=== PATIENT | female | born 1985 | race Two or more races ===

== ENCOUNTER → 2020-11-30 | Outpatient (REF) | payer MEDICARE, OTHER ==
[2020-11-30 15:59] LABS: AMORPHOUS SEDIMENT SMALL (NEGATIVE); APPEARANCE, URINE CLOUDY (CLEAR); BACTERIA, URINE AUTO 2+ (NEGATIVE); BILIRUBIN, URINE AUTO NEGATIVE (NEGATIVE); BLOOD, URINE BLOOD NEGATIVE (NEGATIVE); COLOR, URINE AMBER (YELLOW); GLUCOSE, URINE (UA) AUTO NEGATIVE (NEGATIVE); KETONE, URINE AUTO NEGATIVE (NEGATIVE); LEUKOCYTE ESTERASE, URINE AUTO NEGATIVE (NEGATIVE); MUCUS, URINE SMALL (NEGATIVE); NITRITE, URINE AUTO POSITIVE (NEGATIVE); PROTEIN, URINE AUTO NEGATIVE (NEGATIVE); RBC, URINE AUTO 1 /HPF (0-3); SPECIFIC GRAVITY URINE AUTO 1.023 (1.002-1.035); SQUAMOUS EPITHELIAL CELL UR AU 1 /HPF (0-6); WBC, URINE AUTO 6 /HPF (0-3)
[2020-11-30 16:36] LABS: ALBUMIN 4.3 GM/DL (3.2-5.2); ALT/SGPT 31 U/L (12-78); BILIRUBIN,TOTAL 0.6 MG/DL (0.2-1.0); BLOOD UREA NITROGEN 13 MG/DL (7-18); CALCIUM LEVEL 10.6 MG/DL (8.5-10.1); CARBON DIOXIDE LEVEL 27 MEQ/L (21-32); CHLORIDE LEVEL 107 MEQ/L (98-107); CREATININE FOR GFR 0.72 MG/DL (0.55-1.30); GLOMERULAR FILTRATION RATE > 60.0 (>60); GLUCOSE, FASTING 76 MG/DL (70-100); PHENYTOIN (DILANTIN) 8.5 UG/ML (10.0-20.0); POTASSIUM SERUM 4.3 MEQ/L (3.5-5.1); SODIUM LEVEL 137 MEQ/L (136-145); TOTAL PROTEIN 7.7 GM/DL (6.4-8.2)
[2020-11-30 16:41] LABS: HEPATITIS B SURFACE ANTIBODY POSITIVE (POSITIVE)
[2020-11-30 16:52] LABS: HEPATITIS B SURFACE ANTIGEN NEGATIVE (NEGATIVE)
[2020-11-30 17:20] LABS: HEPATITIS C VIRUS ABY INDEX 0.2 INDEX (<0.8)
[2020-11-30 17:45] LABS: CHLAMYDIA DNA AMPLIFICATION NEGATIVE (NEGATIVE); GC DNA AMPLIFICATION NEGATIVE (NEGATIVE)
[2020-12-04 12:07] LABS: % CD8 Pos Lymph 37.2 % (12.0-35.5); %CD4 Pos Lymphs 37.2 % (30.8-58.5); ABS Eosinophils 0.1 x10E3/uL (0.0-0.4); ABS Lymphs 1.6 x10E3/uL (0.7-3.1); ABS Monocytes 0.2 x10E3/uL (0.1-0.9); ABS Neutophils 0.9 x10E3/uL (1.4-7.0); Abs CD4 Helper 595 /uL (359-1519); Abs CD8 Suppres 595 /uL (109-897); Eosinophils 2 % (Not Estab.); HCT 35.6 % (34.0-46.6); HEPATITIS A IgG TOTAL Negative (Negative); HEPATITIS B CORE ANTIBODY IGG Negative (Negative); HGB 11.4 g/dL (11.1-15.9); HIV-1 RNA PCR QUANT 2 LC550285 <20 copies/mL (.); Immature Grans 0 % (Not Estab.); LEVETIRACETAM (KEPPRA) 53.7 ug/mL (10.0-40.0); Lymphocytes 58 % (Not Estab.); MCH 28.9 pg (26.6-33.0); MCV 90 fL (79-97); Monocytes 8 % (Not Estab.); Neutrophils 31 % (Not Estab.); Platelets 230 x10E3/uL (150-450); RBC 3.94 x10E6/uL (3.77-5.28); WBC 2.7 x10E3/uL (3.4-10.8)
== END ==
LOC: M SFHCPLAZ 11:59
PROVIDERS: ATTEND Internal Medicine Infectious Disease
DX: B20 Human immunodeficiency virus [HIV] disease (principal); R56.9 Unspecified convulsions
CPT/HCPCS: 36415; 80053; 80180; 80185; 81001; 86360; 86480; 86704; 86706; 86708; 86780; 86803; 87340; 87491; 87536; 87591; 90682; G0008; G0463